=== PATIENT | female | born 1990 | race Two or more races ===

== ENCOUNTER 2016-06-24 15:02 | Emergency (ER) | payer SELFPAY ==
--- NOTE | 2016-06-24 15:19 | ER Document Report ---
ED Medical Screen (RME) - General Stated Complaint: NECK PAIN Time seen by provider: 15:16 Mode of Arrival: Ambulatory Information source: Patient Notes: 25-year-old female presents to ED for neck pain right ear pain and headache with some swelling to the right side of her face and neck. She states she had similar pain about 2 weeks ago it got a little better than 2 days ago it started again and has gotten much worse. She's been taken sinus medicine and Tylenol which are not helping. States she has nausea but no vomiting.. Started on the of this month I have greeted and performed a rapid initial assessment of this patient. A comprehensive ED assessment and evaluation of the patient, analysis of test results and completion of medical decision making process will be conducted by an additional ED providers. TRAVEL OUTSIDE OF THE [place] IN LAST 30 DAYS: No - Related Data Allergies/Adverse Reactions: Penicillins Allergy (Verified 09/07/15 21:20) pineapple [Pineapple] Allergy (Verified 09/07/15 21:20) Past Medical History - Past Medical History Cardiac Medical History: Denies: Hx Coronary Artery Disease - HX OF HIGH CHOLESTEROL, NO LONGER ON MEDICATION, Hx Heart Attack, Hx Hypertension Pulmonary Medical History: Reports: Hx Asthma Denies: Hx Bronchitis, Hx COPD, Hx Pneumonia Neurological Medical History: Reports: Hx Migraine. Denies: Hx Cerebrovascular Accident, Hx Seizures GI Medical History: Reports: Hx Gastroesophageal Reflux Disease Musculoskeltal Medical History: Denies Hx Arthritis Past Surgical History: Reports: Hx Cholecystectomy. Denies: Hx Hysterectomy - UCG NEGATIVE - Immunizations Hx Diphtheria, Pertussis, Tetanus Vaccination: Yes Physical Exam - Vital signs Vitals: Temp Pulse Resp BP Pulse Ox 98.0 F 111 H 18 146/97 H 98 06/24/16 15:13 06/24/16 15:13 06/24/16 15:13 06/24/16 15:13 06/24/16 15:13 Course - Vital Signs Vital signs: Temp Pulse Resp BP Pulse Ox 98.0 F 111 H 18 146/97 H 98 06/24/16 15:13 06/24/16 15:13 06/24/16 15:13 06/24/16 15:13 06/24/16 15:13
[2016-06-24] MEDS ORDERED: IBUPROFEN 800 MG TABLET PO ONE (15:20)
[2016-06-24] MEDS ORDERED: IBUPROFEN 800 MG TABLET ONE (15:24)
[2016-06-24] MEDS ORDERED: KETOROLAC TROMETHAMINE 60 MG/2 ML SDV IM ONE (16:00)
--- NOTE | 2016-06-24 18:25 | ER Document Report ---
HPI - HPI Patient complains to provider of: neck pain and sinus congestion Onset: Other - 5 days Onset/Duration: Sudden, Gradual - worsening of neck pain Quality of pain: Achy, Dull Severity: Moderate Pain Level: 4 Associated Symptoms: Nonproductive cough, Headache, Sinus pain/drainage. denies : Sore throat, Sweating Exacerbated by: Movement Relieved by: Remaining still - CONSTITUTIONAL Constitutional: REPORTS: Chills. DENIES: Fever - EENT EENT: REPORTS: Sore Throat, Ear Pain, Nasal Drainage-Clear, Congestion. DENIES : Nasal Drainage-Purulent, Eye problems - NEURO Neurology: REPORTS: Headache, Weakness. DENIES: Vision blurred, Dizzinesss / Vertigo - CARDIOVASCULAR Cardiovascular: DENIES: Chest pain - RESPIRATORY Respiratory: REPORTS: Coughing. DENIES: Trouble Breathing - GASTROINTESTINAL Gastrointestinal: DENIES: Abdominal Pain, Nausea, Patient vomiting, Diarrhea, Constipation, Black / Bloody Stools - URINARY Urinary: DENIES: Dysuria, Urgency, Frequency - REPRODUCTIVE Reproductive: DENIES: : - MUSCULOSKELETAL Musculoskeletal: REPORTS: Neck Pain. DENIES: Extremity pain, Back Pain, Swelling - DERM Skin Color: Normal Skin Problems: None Past Medical History - General Information source: Patient - Social History Smoking Status: Never Smoker Chew tobacco use (# tins/day): No Frequency of alcohol use: None Drug Abuse: None Family History: DM, Hypertension, Thyroid Disfunction Patient has suicidal ideation: No Patient has homicidal ideation: No - Past Medical History Cardiac Medical History: Denies: Hx Coronary Artery Disease - HX OF HIGH CHOLESTEROL, NO LONGER ON MEDICATION, Hx Heart Attack, Hx Hypertension Pulmonary Medical History: Reports: Hx Asthma Denies: Hx Bronchitis, Hx COPD, Hx Pneumonia Neurological Medical History: Reports: Hx Migraine. Denies: Hx Cerebrovascular Accident, Hx Seizures Renal/ Medical History: Denies: Hx Peritoneal Dialysis GI Medical History: Reports: Hx Gastroesophageal Reflux Disease Musculoskeltal Medical History: Denies Hx Arthritis Past Surgical History: Reports: Hx Cholecystectomy. Denies: Hx Hysterectomy - UCG NEGATIVE - Immunizations Hx Diphtheria, Pertussis, Tetanus Vaccination: Yes Hx Pneumococcal Vaccination: 06/05/00 Vertical Provider Document - CONSTITUTIONAL Agree With Documented VS: Yes Exam Limitations: No Limitations General Appearance: WD/WN, No Apparent Distress - INFECTION CONTROL TRAVEL OUTSIDE OF THE [place] IN LAST 30 DAYS: No - HEENT HEENT: Atraumatic, Normal ENT Exam, Normocephalic - NECK Neck: Normal Inspection, Supple, Other - full ROM - RESPIRATORY Respiratory: Breath Sounds Normal, No Respiratory Distress, Chest Non-Tender O2 Sat by Pulse Oximetry: 98 - CARDIOVASCULAR Cardiovascular: Regular Rate, Regular Rhythm, No Murmur Pulses: Normal: Radial - MUSCULOSKELETAL/EXTREMETIES Musculoskeletal/Extremeties: MAEW, FROM, Non-Tender, No Edema - NEURO Level of Consciousness: Awake, Alert, Appropriate Motor/Sensory: No Motor Deficit, No Sensory Deficit - DERM Integumentary: Warm, Dry, No Rash Course - Re-evaluation Re-evalutation: 06/24/16 22:18 patient is HDS and NAD resting comfortably and respoded well to toradol. Educated on OTC medications to manage sinus congestion. can follow up with PCP - Vital Signs Vital signs: Temp Pulse Resp BP Pulse Ox 98.0 F 111 H 18 146/97 H 98 06/24/16 15:13 06/24/16 15:13 06/24/16 15:13 06/24/16 15:13 06/24/16 15:13 Discharge - Discharge Clinical Impression: Congestion of paranasal sinus Headache Qualifiers: Headache type: unspecified Headache chronicity pattern: acute headache Intractability: intractable Qualified Code(s): R51 - Headache Condition: Good Disposition: HOME, SELF-CARE Instructions: Decongestant Medication ([facility]), Toradol Injection ([facility]), Tension Headache ([facility]) Prescriptions: Ibuprofen [Motrin 800 mg Tablet] 800 mg PO Q8H PRN #30 tab PRN Reason: Forms: Elevated Blood Pressure
[2016-06-24 18:45] VITALS: BP 120/64
== END 2016-06-24 18:45 | disposition home or self-care (01) ==
LOC: ER 15:02
DX: R09.81 Nasal congestion (principal); M54.2 Cervicalgia; R05 Cough
CPT/HCPCS: 99283; 96372; J1885

== ENCOUNTER 2016-12-08 07:35 | Emergency (ER) | payer SELFPAY ==
[2016-12-08] MEDS ORDERED: DIPHENHYDRAMINE HCL 50 MG/ML VIAL IM ONE ×2 (08:34→10:57)
[2016-12-08] MEDS ORDERED: PREDNISONE 20 MG TABLET PO ONE (08:34)
[2016-12-08] MEDS ORDERED: FAMOTIDINE 20 MG TABLET PO ONE (08:34)
[2016-12-08 10:47] VITALS: BP 128/82
--- NOTE | 2016-12-08 10:57 | ER Document Report ---
ED General - General Chief Complaint: Hives Stated Complaint: POSSIBLE INSECT BITES Time Seen by Provider: 12/08/16 08:21 TRAVEL OUTSIDE OF THE [place] IN LAST 30 DAYS: No - HPI Patient complains to provider of: Hives itching Notes: Patient coming in for evaluation of hives and itching. Patient states that she woke up with multiple hives he is sensing patient states she has taken Benadryl at home however minimal relief. Patient denies knowing of any other allergies except for pineapple and penicillin concerned she may be having a reaction to bedbug bites. Patient denies any fevers chills nausea vomiting diarrhea. - Related Data Allergies/Adverse Reactions: Penicillins Allergy (Verified 12/08/16 08:20) pineapple [Pineapple] Allergy (Verified 12/08/16 08:20) Past Medical History - Social History Smoking Status: Never Smoker Chew tobacco use (# tins/day): No Frequency of alcohol use: None Drug Abuse: None Family History: DM, Hypertension, Thyroid Disfunction Patient has suicidal ideation: No Patient has homicidal ideation: No - Past Medical History Cardiac Medical History: Denies: Hx Coronary Artery Disease - HX OF HIGH CHOLESTEROL, NO LONGER ON MEDICATION, Hx Heart Attack, Hx Hypertension Pulmonary Medical History: Reports: Hx Asthma Denies: Hx Bronchitis, Hx COPD, Hx Pneumonia Neurological Medical History: Reports: Hx Migraine. Denies: Hx Cerebrovascular Accident, Hx Seizures Renal/ Medical History: Denies: Hx Peritoneal Dialysis GI Medical History: Reports: Hx Gastroesophageal Reflux Disease Musculoskeltal Medical History: Denies Hx Arthritis Past Surgical History: Reports: Hx Cholecystectomy. Denies: Hx Hysterectomy - UCG NEGATIVE - Immunizations Hx Diphtheria, Pertussis, Tetanus Vaccination: Yes Hx Pneumococcal Vaccination: 06/05/00 Review of Systems - Review of Systems Constitutional: No symptoms reported EENT: No symptoms reported Cardiovascular: No symptoms reported Respiratory: No symptoms reported Gastrointestinal: No symptoms reported Genitourinary: No symptoms reported Female Genitourinary: No symptoms reported Musculoskeletal: No symptoms reported Skin: Other - Hives Hematologic/Lymphatic: No symptoms reported Neurological/Psychological: No symptoms reported Physical Exam - Vital signs Vitals: Temp Pulse Resp BP Pulse Ox 98.7 F 87 16 151/96 H 100 12/08/16 07:39 12/08/16 07:39 12/08/16 07:39 12/08/16 07:39 12/08/16 07:39 Interpretation: Normal - General General appearance: Appears well, Alert - HEENT Head: Normocephalic, Atraumatic Eyes: Normal Pupils: PERRL - Respiratory Respiratory status: No respiratory distress Chest status: Nontender Breath sounds: Normal Chest palpation: Normal - Cardiovascular Rhythm: Regular Heart sounds: Normal auscultation Murmur: No - Abdominal Inspection: Normal Distension: No distension Bowel sounds: Normal Tenderness: Nontender Organomegaly: No organomegaly - Back Back: Normal, Nontender - Extremities General upper extremity: Normal inspection, Nontender, Normal color, Normal ROM , Normal temperature General lower extremity: Normal inspection, Nontender, Normal color, Normal ROM , Normal temperature, Normal weight bearing. No: Dillon's sign - Neurological Neuro grossly intact: Yes Cognition: Normal Orientation: AAOx4 [place] Coma Scale Eye Opening: Spontaneous Elizabeth Coma Scale Verbal: Oriented [place] Coma Scale Motor: Obeys Commands Austin Coma Scale Total: 15 Speech: Normal Motor strength normal: LUE, RUE, LLE, RLE Sensory: Normal - Psychological Associated symptoms: Normal affect, Normal mood - Skin Skin Temperature: Warm Skin Moisture: Dry Skin Color: Other - Diffuse hives on the torso upper and lower extremities. Course - Re-evaluation Re-evalutation: 12/08/16 15:53 Patient coming in for evaluation of diffuse hives with resolution on the lower extremities with Benadryl Pepcid and steroids. Will discharge patient home on Atarax and prednisone - Vital Signs Vital signs: Temp Pulse Resp BP Pulse Ox 98.2 F 79 18 128/82 H 96 12/08/16 10:41 12/08/16 10:41 12/08/16 10:41 12/08/16 10:41 12/08/16 10:41 Discharge - Discharge Clinical Impression: Hives Condition: Good Disposition: HOME, SELF-CARE Instructions: Acute Urticaria ([facility]), Acute Allergic Reaction ([facility]) Additional Instructions: The examination today is consistent with hives from allergic reaction. Unclear what the initiating event is at this time. Would recommend follow-up with your primary care physician. Continue take medication as prescribed he may also use [id number] Benadryl cream or calamine lotion for itching please avoid hot showers. Return to ER symptoms worsen Prescriptions: Hydroxyzine HCl [Atarax 50 mg Tablet] 50 mg PO Q6 #30 tablet Prednisone [Deltasone 20 mg Tablet] 3 tab PO DAILY 5 Days Forms: Return to Work Referrals: LOCALMD,NO [NO LOCAL MD] - Follow up in 3-5 days
== END 2016-12-08 11:28 | disposition home or self-care (01) ==
LOC: ER 07:35
DX: L50.9 Urticaria, unspecified (principal)
CPT/HCPCS: 99283; 96372; J1200; J7512

== ENCOUNTER 2017-01-16 16:55 | Emergency (ER) | payer SELFPAY ==
--- NOTE | 2017-01-16 18:11 | ER Document Report ---
ED Medical Screen (RME) - General Chief Complaint: Abdominal pain, breast pain Stated Complaint: ABDOMINAL PAIN Time Seen by Provider: 01/16/17 18:01 Notes: 26-year-old female patient complains of a three-week history of bilateral breast pain and suprapubic abdominal pain which is been getting worse. She has done negative tests at home. She has not seen a primary care provider to evaluate this problem. I have greeted and performed a rapid initial assessment of this patient. A comprehensive ED assessment and evaluation of the patient, analysis of test results and completion of the medical decision making process will be conducted by additional ED providers. TRAVEL OUTSIDE OF THE [place] IN LAST 30 DAYS: No - Related Data Allergies/Adverse Reactions: Penicillins Allergy (Verified 12/08/16 08:20) pineapple [Pineapple] Allergy (Verified 12/08/16 08:20) Home Medications: Current Home Medications No Home Medications 01/16/17 [History] Past Medical History - Past Medical History Cardiac Medical History: Denies: Hx Coronary Artery Disease - HX OF HIGH CHOLESTEROL, NO LONGER ON MEDICATION, Hx Heart Attack, Hx Hypertension Pulmonary Medical History: Reports: Hx Asthma Denies: Hx Bronchitis, Hx COPD, Hx Pneumonia Neurological Medical History: Reports: Hx Migraine. Denies: Hx Cerebrovascular Accident, Hx Seizures Renal/ Medical History: Denies: Hx Peritoneal Dialysis GI Medical History: Reports: Hx Gastroesophageal Reflux Disease Musculoskeltal Medical History: Denies Hx Arthritis Past Surgical History: Reports: Hx Cholecystectomy. Denies: Hx Hysterectomy - UCG NEGATIVE - Immunizations Hx Diphtheria, Pertussis, Tetanus Vaccination: Yes Physical Exam - Vital signs Vitals: Temp Pulse Resp BP Pulse Ox 99.1 F 82 18 139/94 H 96 01/16/17 17:11 01/16/17 17:11 01/16/17 17:11 01/16/17 17:11 01/16/17 17:11 Course - Vital Signs Vital signs: Temp Pulse Resp BP Pulse Ox 99.1 F 82 18 139/94 H 96 01/16/17 17:11 01/16/17 17:11 01/16/17 17:11 01/16/17 17:11 01/16/17 17:11
[2017-01-16 19:14] LABS: APPEARANCE,URINE SLIGHTLY-CLOUDY; BILIRUBIN,URINE NEGATIVE (NEGATIVE); GLUCOSE, URINE NEGATIVE (NEGATIVE); KETONES,URINE NEGATIVE (NEGATIVE); LEUKOCYTE ESTERASE,URINE SMALL (NEGATIVE); NITRITE,URINE NEGATIVE (NEGATIVE); PROTEIN,URINE NEGATIVE (NEGATIVE); URINE SPECIFIC GRAVITY 1.024; UROBILINOGEN,URINE NEGATIVE mg/dL (<2.0)
[2017-01-16 19:24] LABS: ABSOLUTE LYMPHOCYTES (AUTO) 2.6 10^3/uL (0.5-4.7); ABSOLUTE MONOCYTES (AUTO) 0.3 10^3/uL (0.1-1.4); ABSOLUTE NEUT (AUTO) 4.2 10^3/uL (1.7-8.2); BASOPHILS % (AUTO) 0.3 % (0-2); EOSINOPHILS % (AUTO) 0.7 % (0-6); HEMATOCRIT 39.3 % (36.0-47.0); HGB HCT DIFFERENCE -0.3; LYMPHOCYTES % (AUTO) 35.5 % (13-45); MEAN CORPUSCULAR HEMOGLOBIN 26.9 pg (27.0-33.4); MEAN CORPUSCULAR HGB CONC 33.1 g/dL (32.0-36.0); MEAN CORPUSCULAR VOLUME 81 fl (80-97); MONOCYTES % (AUTO) 4.5 % (3-13); RED BLOOD COUNT 4.84 10^6/uL (3.72-5.28); RED CELL DISTRIBUTION WIDTH 14.3 % (11.5-14.0); WHITE BLOOD COUNT 7.2 10^3/uL (4.0-10.5)
[2017-01-16 19:37] LABS: ALANINE AMINOTRANSFERASE 49 U/L (9-52); ALBUMIN 4.5 g/dL (3.5-5.0); ALKALINE PHOSPHATASE 73 U/L (38-126); ANION GAP 12 (5-19); ASPARTATE AMINO TRANSFERASE 35 U/L (14-36); BILIRUBIN,DIRECT 0.4 mg/dL (0.0-0.4); BILIRUBIN,TOTAL 0.6 mg/dL (0.2-1.3); BLOOD UREA NITROGEN 9 mg/dL (7-20); CALCIUM 9.8 mg/dL (8.4-10.2); CARBON DIOXIDE 25 mmol/L (22-30); CHLORIDE 104 mmol/L (98-107); CREATININE RESULT 0.61 mg/dL (0.52-1.25); GLUCOSE 93 mg/dL (75-110); POTASSIUM 4.1 mmol/L (3.6-5.0); SODIUM 140.8 mmol/L (137-145)
--- NOTE | 2017-01-16 20:11 | ER Document Report ---
HPI - HPI Pain Level: 4 Notes: Patient is a non 26-year-old female who presents the ED complaining of lower pelvic sharp pain on and off 3 weeks. The pain is bilateral. Patient is not aware of any precipitating event. Nothing makes the pain worse or better that she can think of. Patient also complains of bilateral breast sensitivity with soreness, but no pain that she can find with movement or palpation of her breasts. No discharge, dimpling, redness, or swelling to her breasts per patient. That discomfort has been ongoing on and off 2 days. Patient has not been evaluated by the women's clinic for these concerns at this time. test at home was negative. Patient states that she is still eating and drinking without any difficulties. She is still urinating normally and having normal bowel movements. She has not had any over- the-counter meds for her symptoms. Patient states she is allergic to penicillins which causes swelling, but no other significant past medical history. Denies any headache, fever, URI, sore throat, chest pain, palpitations , syncope, cough, shortness of breath, wheeze, dyspnea, nausea/vomiting/diarrhea , urinary retention, dysuria, hematuria, loss of control of bowel or bladder, vaginal discharge/bleeding/odor, numbness/tingling, saddle anesthesia, muscle paralysis/weakness, or rash. - ROS Notes: REVIEW OF SYSTEMS: CONSTITUTIONAL : Denies fever, chills, or sweats. Denies recent illness. EENT: Denies eye, ear, throat, or mouth pain or symptoms. Denies nasal or sinus congestion or discharge. Denies throat, tongue, or mouth swelling or difficulty swallowing. CARDIOVASCULAR: Denies chest pain. Denies palpitations or racing or irregular heart beat. Denies ankle edema. RESPIRATORY: Denies cough, cold, or chest congestion. Denies shortness of breath, difficulty breathing, or wheezing. GASTROINTESTINAL: see hpi GENITOURINARY: Denies difficulty urinating, painful urination, burning, frequency, blood in urine, or discharge. FEMALE GENITOURINARY: Denies vaginal bleeding, heavy or abnormal periods, irregular periods. Denies vaginal discharge or odor. MUSCULOSKELETAL: Denies back or neck pain or stiffness. Denies joint pain or swelling. SKIN: Denies rash, lesions or sores. NEUROLOGICAL: Denies confusion or altered mental status. Denies passing out or loss of consciousness. Denies dizziness or lightheadedness. Denies headache. Denies weakness or paralysis or loss of use of either side. Denies problems with gait or speech. Denies sensory loss, numbness, or tingling. Denies seizures. PSYCHIATRIC: Denies anxiety or stress. Denies depression, suicidal ideation, or homicidal ideation. ALL OTHER SYSTEMS REVIEWED AND NEGATIVE. Dictation was performed using [employer] voice recognition software - CARDIOVASCULAR Cardiovascular: DENIES: Chest pain - REPRODUCTIVE LMP: irreg Reproductive: DENIES: : - DERM Skin Color: Normal, [place] Past Medical History - Social History Smoking Status: Never Smoker Chew tobacco use (# tins/day): No Frequency of alcohol use: None Drug Abuse: None Family History: DM, Hypertension, Thyroid Disfunction - Past Medical History Cardiac Medical History: Denies: Hx Coronary Artery Disease - HX OF HIGH CHOLESTEROL, NO LONGER ON MEDICATION, Hx Heart Attack, Hx Hypertension Pulmonary Medical History: Reports: Hx Asthma Denies: Hx Bronchitis, Hx COPD, Hx Pneumonia Neurological Medical History: Reports: Hx Migraine. Denies: Hx Cerebrovascular Accident, Hx Seizures Renal/ Medical History: Denies: Hx Peritoneal Dialysis GI Medical History: Reports: Hx Gastroesophageal Reflux Disease Musculoskeltal Medical History: Denies Hx Arthritis Past Surgical History: Reports: Hx Cholecystectomy. Denies: Hx Hysterectomy - Immunizations Hx Diphtheria, Pertussis, Tetanus Vaccination: Yes Hx Pneumococcal Vaccination: 06/05/00 Vertical Provider Document - CONSTITUTIONAL Agree With Documented VS: Yes Notes: PHYSICAL EXAMINATION: GENERAL: Well-appearing, well-nourished and in no acute distress. Pt sitting comfortably on the exam table. NECK: Normal range of motion, supple without lymphadenopathy Breast: symmetric b/l. no dimpling, lesions, erythema, or swelling noted. No palpable masses appreciated. No axillary/cervical/clavilar adenopathy. + mild tenderness to the left inferior breast. LUNGS: Breath sounds clear to auscultation bilaterally and equal. No wheezes rales or rhonchi. HEART: Regular rate and rhythm without murmurs ABDOMEN: Soft, nondistended abdomen. No guarding, no rebound. No masses appreciated. Normal bowel sounds present. CVA tenderness negative bilaterally. + mild tenderness to the lower pelvic areas b/l. Female : No inguinal adenopathy. External genitalia without erythema, lesions , or masses. Vaginal mucosa pink with white discharge. Cervix parous, pink, and without discharge. Uterus is smooth. No adnexal tenderness. Musculoskeletal: LE's b/l: FROM to passive/active. Strength 5+/5. Extremities: No cyanosis/clubbing/edema b/l. Peripheral pulses 2+. Capillary refill less than 3 seconds. NEUROLOGICAL:Normal speech, normal gait. Normal sensory, motor exams PSYCH: Normal mood, normal affect. SKIN: Warm, Dry, normal turgor, no rashes or lesions noted. - INFECTION CONTROL TRAVEL OUTSIDE OF THE [place] IN LAST 30 DAYS: No - RESPIRATORY O2 Sat by Pulse Oximetry: 96 Course - Re-evaluation Re-evalutation: 01/16/17 22:46 Patient is an afebrile, well-hydrated, 26-year-old female who presents the ED with bacterial vaginosis, pelvic pain, and breast pain (reviewed breast pain with Dr. Chun who recommends f/u with OB-ETHICS INSTRUCTOR/PCM for further eval). I suspect that her breast pain is fibrocystic changes based on H&P today. Vitals are stable. PE otherwise unremarkable. Low suspicion for any acute appendicitis, bowel obstruction, acute cholecystitis, perforated diverticulitis, incarcerated hernia, pancreatitis, pelvic inflammatory disease, perforated ulcer, ectopic , tubo-ovarian abscess, peritonitis, or sepsis. Patient is aware that condition can change from initial presentation and she needs to monitor symptoms closely and seek medical attention if any acute changes. I will send her home with a prescription for Flagyl to take as directed. conservative measures for symptoms as reviewed in discharge. Recheck with the women's clinic in 2-3 days. Return to the ED with any worsening/concerning symptoms otherwise as reviewed in discharge. Patient is in agreement. - Vital Signs Vital signs: Temp Pulse Resp BP Pulse Ox 99.1 F 82 18 139/94 H 96 01/16/17 17:11 01/16/17 17:11 01/16/17 17:11 01/16/17 17:11 01/16/17 17:11 - Laboratory Result Diagrams: 01/16/17 19:10 01/16/17 19:10 Laboratory results interpreted by me: 01/16/17 01/16/17 18:42 19:10 MCH 26.9 L RDW 14.3 H Ur Leukocyte Esterase SMALL H Urine Ascorbic Acid 20 H Procedures - Pelvic Exam Pelvic exam Time completed: 21:00 Cultures obtained: Yes Wet prep obtained: No Herpes culture obtained: No Bimanual exam performed: Yes Witnessed by: female pct Discharge - Discharge Clinical Impression: Bacterial vaginal infection, Pelvic pain, Breast pain Condition: Stable Disposition: HOME, SELF-CARE Instructions: Pelvic Pain ([facility]), Vaginosis, Bacterial ([facility]), Breast Self- Examination ([facility]), Breast Fibrocystic Disease ([facility]) Additional Instructions: Maintain adequate fluid intake Take medications as directed Tylenol/ibuprofen as needed Monitor for any acute changes Perform regular breast self exams Recheck with the women's clinic in 2-3 days Return to the ED with any worsening symptoms and/or development of fever, headache, chest pain, palpitations, syncope, shortness of breath, trouble breathing, breast dimpling, nipple discharge, redness/abscess, abdominal pain, n /v/d, blood in stool/urine, loss of control of bowel/bladder, urinary retention , vaginal discharge/bleeding, or other worsening symptoms that are concerning to you. Prescriptions: Metronidazole [Flagyl 500 mg Tablet] 500 mg PO BID #14 tablet Forms: Elevated Blood Pressure [facility] - 01/18/17
--- NOTE | 2017-01-16 22:16 | RADIOLOGY REPORT (SQ) ---
EXAM DESCRIPTION: U/S NON OB PEL TV W/DOPPLER COMPLETED DATE/TIME: 01/16/2017 10:07 pm REASON FOR STUDY: pelvic pain COMPARISON: None. TECHNIQUE: Dynamic and static grayscale images acquired of the pelvis via transvaginal approach and recorded on PACS. Additional selected color Doppler and spectral images recorded. LIMITATIONS: None. FINDINGS: UTERUS: Contour normal. No mass. ENDOMETRIAL STRIPE: No focal or generalized thickening. No masses. CERVIX: No nabothian cysts. RIGHT OVARY: No abnormal masses. RIGHT OVARY DOPPLER: Normal arterial vascular flow without evidence for torsion. LEFT OVARY: No abnormal masses. LEFT OVARY DOPPLER: Normal arterial vascular flow without evidence for torsion. FREE FLUID: None noted. OTHER: No other significant finding. MEASUREMENTS: UTERUS: 8.2 x 5.3 x 4.1 cm ENDOMETRIAL STRIPE: 10 mm RIGHT OVARY: 3.8 x 2.0 x 2.6 cm LEFT OVARY: 2.9 x 2.4 x 1.7 sign IMPRESSION: No significant pelvic abnormalities were identified. Findings as noted above TECHNICAL DOCUMENTATION: JOB ID: [id number] All Rights Reserved
[2017-01-16 22:28] LABS: CHLAM PCR NOT DETECTED (NOT DETECT)
[2017-01-16 22:55] VITALS: BP 140/80
== END 2017-01-16 22:59 | disposition home or self-care (01) ==
LOC: ER 16:55
DX: N76.0 Acute vaginitis (principal); N64.4 Mastodynia; R10.2 Pelvic and perineal pain
CPT/HCPCS: 36415; 76830; 80053; 81001; 84703; 85025; 87210; 87491; 87591; 93976; 99284

== ENCOUNTER 2017-09-21 03:11 | Emergency (ER) | payer SELFPAY ==
[2017-09-21] MEDS ORDERED: ONDANSETRON HCL INJ/PF 4 MG/2 ML SDV ONE (03:41)
[2017-09-21] MEDS ORDERED: NORMAL SALINE 1000 ML 1,000 ML IV PRN (03:53)
[2017-09-21] MEDS ORDERED: ONDANSETRON HCL INJ/PF 4 MG/2 ML SDV IV ONE (03:53)
[2017-09-21] MEDS ORDERED: METOCLOPRAMIDE HCL INJ/PF 10 MG/2 ML SDV IV ONE (03:58)
[2017-09-21] MEDS ORDERED: HYDROMORPHONE HCL INJ/PF 2 MG/ML AMPULE IV ONE ×2 (03:59→04:13)
[2017-09-21] MEDS ORDERED: KETOROLAC TROMETHAMINE INJ/PF 30 MG/1 ML SDV IV ONE (03:59)
[2017-09-21] MEDS ORDERED: HYDROMORPHONE HCL INJ/PF 2 MG/ML AMPULE ONE (04:01)
[2017-09-21] MEDS ORDERED: KETOROLAC TROMETHAMINE INJ/PF 30 MG/1 ML SDV ONE (04:02)
[2017-09-21] MEDS ORDERED: METOCLOPRAMIDE HCL INJ/PF 10 MG/2 ML SDV ONE (04:02)
--- NOTE | 2017-09-21 04:03 | ER Document Report ---
ED General - General Chief Complaint: Abdominal Pain Stated Complaint: ABDOMINAL PAIN,VOMITING Time Seen by Provider: 09/21/17 03:58 Notes: Patient is a 27 year old female with a past medical history of morbid obesity, no chronic medical problems, prior surgical history of a cholecystectomy who presents with acute onset of severe left-sided flank tenderness radiating to the left lower abdomen that started approximately 1 hour prior to arrival. Patient notes associated nausea and vomiting. She reports the pain is a severe , constant, stabbing pain to the affected areas. Nothing improves or worsens that pain. She has no history of similar symptoms in the past. She has no prior history of kidney stones. She has not had a fever, diarrhea, headache or neck pain. She has not seen her primary doctor regarding today's concerns. TRAVEL OUTSIDE OF THE [place] IN LAST 30 DAYS: No - Related Data Allergies/Adverse Reactions: Penicillins Allergy (Verified 01/16/17 19:30) pineapple [Pineapple] Allergy (Verified 01/16/17 19:30) Past Medical History - General Information source: Patient - Social History Smoking Status: Never Smoker Frequency of alcohol use: None Drug Abuse: None Lives with: Spouse/Significant other Family History: DM, Hypertension, Thyroid Disfunction - Past Medical History Cardiac Medical History: Denies: Hx Coronary Artery Disease - HX OF HIGH CHOLESTEROL, NO LONGER ON MEDICATION, Hx Heart Attack, Hx Hypertension Pulmonary Medical History: Reports: Hx Asthma Denies: Hx Bronchitis, Hx COPD, Hx Pneumonia Neurological Medical History: Reports: Hx Migraine. Denies: Hx Cerebrovascular Accident, Hx Seizures Renal/ Medical History: Denies: Hx Peritoneal Dialysis GI Medical History: Reports: Hx Gastroesophageal Reflux Disease Musculoskeltal Medical History: Denies Hx Arthritis Past Surgical History: Reports: Hx Cholecystectomy. Denies: Hx Hysterectomy - Immunizations Hx Diphtheria, Pertussis, Tetanus Vaccination: Yes Hx Pneumococcal Vaccination: 06/05/00 Review of Systems - Review of Systems Notes: Constitutional: Negative for fever. HENT: Negative for sore throat. Eyes: Negative for visual changes. Cardiovascular: Negative for chest pain. Respiratory: Negative for shortness of breath. Gastrointestinal: Positive for flank tenderness and vomiting Genitourinary: Negative for dysuria. Musculoskeletal: Negative for back pain. Skin: Negative for rash. Neurological: Negative for headaches, weakness or numbness. 10 point ROS negative except as marked above and in HPI. Physical Exam - Vital signs Vitals: Temp Pulse Resp BP Pulse Ox 98.2 F 77 16 155/124 H 99 09/21/17 03:16 09/21/17 03:16 09/21/17 03:16 09/21/17 03:16 09/21/17 03:16 Interpretation: Hypertensive Notes: PHYSICAL EXAMINATION: GENERAL: Appears to be extremely uncomfortable, moving around the room and clearly unable to find a position of comfort HEAD: Atraumatic, normocephalic. EYES: Pupils equal round and reactive to light, extraocular movements intact, sclera anicteric, conjunctiva are normal. ENT: nares patent, oropharynx clear without exudates. Dry mucous membranes. NECK: Normal range of motion, supple without lymphadenopathy LUNGS: Breath sounds clear to auscultation bilaterally and equal. No wheezes rales or rhonchi. HEART: Regular rate and rhythm without murmurs ABDOMEN: Soft, left CVA tenderness as well as left lower quadrant abdominal tenderness, no additional localized areas of tenderness, normoactive bowel sounds. No guarding, no rebound. No masses appreciated. EXTREMITIES: Normal range of motion, no pitting or edema. No cyanosis. NEUROLOGICAL: No focal neurological deficits. Moves all extremities spontaneously and on command. PSYCH: Normal mood, normal affect. SKIN: Warm, Dry, normal turgor, no rashes or lesions noted. Course - Re-evaluation Re-evalutation: 09/21/17 04:03 Presents with findings consistent with acute nephrolithiasis. Urinalysis does show hematuria. Laboratory otherwise unremarkable. Pain was able to be controlled here in the emergency department. Patient is tolerating oral intake. Clinical history is not consistent with an acute abdominal aneurysm or dissection, [place], or pulmonary embolus. There is some contamination to the urine specimen although the 27 white blood cells are noted. The urine has therefore been cultured and the patient will be prophylactically placed on cephalexin to guard against any possibility of an infected stone. Vitals have remained within normal limits. Patient will be discharged with recommendations to follow -up with urology, pain medications, and return precautions. They are in agreement with this plan and verbalized indications return to emergency department. - Vital Signs Vital signs: Temp Pulse Resp BP Pulse Ox 98.4 F 75 18 133/61 H 97 09/21/17 05:39 09/21/17 05:39 04/19/18 05:39 09/21/17 05:39 09/21/17 05:39 - Laboratory Result Diagrams: 09/21/17 03:50 09/21/17 03:50 Laboratory results interpreted by me: 09/21/17 09/21/17 09/21/17 03:50 03:50 05:35 MCH 26.5 L RDW 14.3 H Sodium 146.5 H Glucose 125 H Urine Protein 100 H Urine Blood LARGE H - Diagnostic Test Radiology reviewed: Reports reviewed Discharge - Discharge Clinical Impression: Kidney stone on left side Hydronephrosis Qualifiers: Hydronephrosis type: unspecified Qualified Code(s): N13.30 - Unspecified hydronephrosis Condition: Good Disposition: HOME, SELF-CARE Additional Instructions: Your symptoms should improve over the course of the next one week. If you continue to have pain for greater than one week or your pain is not controlled with the pain medications that you have been sent home with you need to return to the emergency department. Please also return if you develop fever, persistent vomiting, or any other symptoms that are concerning to you. For your pain: Take ibuprofen 600 mg and acetaminophen 1000 mg every 6 hours together as needed for pain. If this does not control your pain you may take 15 mg of oral morphine every 4 hours as needed. Please be very careful about using the oral morphine and only use this for severe pain. You are also been sent home with a medication called Flomax to help pass the stone. You've been given Zofran to assist with nausea. Please follow-up with urology in the next 2 -3 days. Prescriptions: Morphine Sulfate [Morphine Ir 15 mg Tablet] 15 mg PO Q4HP PRN #12 tablet PRN Reason: Cephalexin Monohydrate [Keflex 500 mg Capsule] 500 mg PO Q6H 5 Days capsule Tamsulosin HCl [Flomax 0.4 mg Cap.sr] 0.4 mg PO DAILY #7 cap.sr.24h Referrals: CHRISTIANO HOOKS II, MD [ARASH MALDONADO] - Follow up in 3-5 days
[2017-09-21 04:08] LABS: ABSOLUTE BASOPHILS # (AUTO) 0.1 10^3/uL (0.0-0.2); ABSOLUTE EOSINOPHILS # (AUTO) 0.1 10^3/uL (0.0-0.6); ABSOLUTE LYMPHOCYTES (AUTO) 3.6 10^3/uL (0.5-4.7); ABSOLUTE MONOCYTES (AUTO) 0.6 10^3/uL (0.1-1.4); ABSOLUTE NEUT (AUTO) 5.6 10^3/uL (1.7-8.2); BASOPHILS % (AUTO) 0.5 % (0-2); EOSINOPHILS % (AUTO) 0.7 % (0-6); HEMATOCRIT 39.5 % (36.0-47.0); HEMOGLOBIN 13.2 g/dL (12.0-15.5); LYMPHOCYTES % (AUTO) 36.4 % (13-45); MEAN CORPUSCULAR HEMOGLOBIN 26.5 pg (27.0-33.4); MEAN CORPUSCULAR HGB CONC 33.3 g/dL (32.0-36.0); MEAN CORPUSCULAR VOLUME 80 fl (80-97); MONOCYTES % (AUTO) 5.8 % (3-13); PLATELET COUNT 216 10^3/uL (150-450); RED BLOOD COUNT 4.97 10^6/uL (3.72-5.28); RED CELL DISTRIBUTION WIDTH 14.3 % (11.5-14.0); SEGMENTED NEUTROPHILS % (AUTO) 56.6 % (42-78); TOTAL CELLS COUNTED % (AUTO) 100 %
[2017-09-21 04:19] LABS: ALANINE AMINOTRANSFERASE 50 U/L (9-52); ALBUMIN 4.3 g/dL (3.5-5.0); ALKALINE PHOSPHATASE 72 U/L (38-126); ANION GAP 16 (5-19); ASPARTATE AMINO TRANSFERASE 31 U/L (14-36); BILIRUBIN,DIRECT 0.3 mg/dL (0.0-0.4); BILIRUBIN,TOTAL 0.3 mg/dL (0.2-1.3); BLOOD UREA NITROGEN 13 mg/dL (7-20); CALCIUM 9.6 mg/dL (8.4-10.2); CARBON DIOXIDE 27 mmol/L (22-30); CHLORIDE 104 mmol/L (98-107); GLUCOSE 125 mg/dL (75-110); LIPASE 143.5 U/L (23-300); POTASSIUM 3.7 mmol/L (3.6-5.0); SODIUM 146.5 mmol/L (137-145); TOTAL PROTEIN 7.5 g/dL (6.3-8.2)
--- NOTE | 2017-09-21 05:21 | RADIOLOGY REPORT (SQ) ---
EXAM DESCRIPTION: CT ABDOMEN AND PELVIS WITHOUT CONTRAST CLINICAL HISTORY: Left upper and lower quadrant pain. COMPARISON: None Available. TECHNIQUE: CT of the abdomen and pelvis without IV contrast. Evaluation of the solid organs and vasculature is suboptimal due to lack of IV contrast. DLP: 1626.58 mGy-cm FINDINGS: Lung Bases: The visualized lung bases are clear. Bones: No destructive bone lesions identified. Abdomen: Liver: The liver has normal size and decreased density. Gallbladder: Prior cholecystectomy. Spleen, Pancreas, and Adrenal Glands: The spleen, pancreas, and adrenal glands are unremarkable. Kidneys: There is a 2 mm obstructing calculus in the proximal left ureter producing mild left hydronephrosis. No right-sided hydronephrosis or obstructing calculus. Vasculature: The aorta and IVC have normal caliber and position. Stomach: The stomach and duodenum have normal course. Other: No free intraperitoneal air. No free fluid or lymphadenopathy. Pelvis: Bladder: Urinary bladder is unremarkable. Bowel: No dilated loops of large or small bowel. Appendix: Normal appendix. Pelvis: Uterus is not enlarged. Postoperative change in the left adnexa. IMPRESSION: 1. There is a 0.2 cm obstructing calculus the proximal left ureter producing mild left hydronephrosis. This exam was performed according to our departmental dose-optimization program, which includes automated exposure control, adjustment of the mA and/or kV according to patient size and/or use of iterative reconstruction technique.
[2017-09-21] MEDS ORDERED: TAMSULOSIN HCL 0.4 MG CAP.SR.24H PO ONE (05:30)
[2017-09-21] MEDS ORDERED: HYDROCODONE/ACETAMINOPHEN 5-325 MG (6 TAB/ER DISP) PO PRN (05:30)
[2017-09-21] MEDS ORDERED: ONDANSETRON ODT 4 MG TAB (6 TAB/ER DISP) PO PRN (05:31)
[2017-09-21 05:40] VITALS: BP 133/61
[2017-09-21 06:12] LABS: APPEARANCE,URINE CLOUDY; BILIRUBIN,URINE NEGATIVE (NEGATIVE); COLOR,URINE AMBER; GLUCOSE, URINE NEGATIVE (NEGATIVE); KETONES,URINE NEGATIVE (NEGATIVE); LEUKOCYTE ESTERASE,URINE NEGATIVE (NEGATIVE); NITRITE,URINE NEGATIVE (NEGATIVE); PROTEIN,URINE 100 mg/dL (NEGATIVE); UROBILINOGEN,URINE NEGATIVE mg/dL (<2.0)
[2017-09-21] MEDS ORDERED: CEPHALEXIN 500 MG CAPSULE PO ONE (06:21)
== END 2017-09-21 06:30 | disposition home or self-care (01) ==
LOC: ER 03:11
DX: N20.0 Calculus of kidney (principal); N13.30 Unspecified hydronephrosis; R10.9 Unspecified abdominal pain; E66.01 Morbid (severe) obesity due to excess calories; Z90.49 Acquired absence of other specified parts of digestive tract; Z88.0 Allergy status to penicillin
CPT/HCPCS: 99284; 96361; 96374; 96375; 36415; 87086; 83690; 84703; 85025; 80053; 81001; 76380; J2765; J1170; J2405; J7030; J1885

== ENCOUNTER 2017-10-02 20:38 | Emergency (ER) | payer SELFPAY ==
[2017-10-02] MEDS ORDERED: DIPHENHYDRAMINE HCL 50 MG/ML VIAL IV ONE (22:40)
[2017-10-02] MEDS ORDERED: PROCHLORPERAZINE EDISYLATE INJ 10 MG/2 ML VIAL IV ONE (22:40)
[2017-10-02] MEDS ORDERED: KETOROLAC TROMETHAMINE INJ/PF 30 MG/1 ML SDV IV ONE (22:42)
[2017-10-02] MEDS ORDERED: NORMAL SALINE 1000 ML 1,000 ML IV ONE (22:44)
--- NOTE | 2017-10-03 00:23 | ER Document Report ---
ED Headache - General Chief Complaint: Headache Stated Complaint: HEADACHE Time Seen by Provider: 10/02/17 22:29 Mode of Arrival: Ambulatory Information source: Patient Notes: Patient is a 27-year-old female who presents with complaints of headache and increased blood pressure. Patient reports that she has been having this headache on and off for the last week. Patient reports that she has been taking Tylenol and Motrin for the headache which has resolved the headache during the week but today the headache gradually became worse. She describes the headache as right sided and states that it feels like a throbbing pain. There is associated nausea. Patient reports past medical history of renal stones and irregular periods and surgical history of cholecystectomy. Patient also reports a penicillin allergy. Patient does report some tightness in her upper shoulders and neck but denies any pain in her neck or fever. TRAVEL OUTSIDE OF THE [place] IN LAST 30 DAYS: No - Related Data Allergies/Adverse Reactions: Penicillins Allergy (Verified 01/16/17 19:30) pineapple [Pineapple] Allergy (Verified 01/16/17 19:30) Past Medical History - General Information source: Patient - Social History Smoking Status: Never Smoker Frequency of alcohol use: Occasional Drug Abuse: None Family History: DM, Hypertension, Thyroid Disfunction Patient has suicidal ideation: No Patient has homicidal ideation: No - Past Medical History Cardiac Medical History: Denies: Hx Coronary Artery Disease - HX OF HIGH CHOLESTEROL, NO LONGER ON MEDICATION, Hx Heart Attack, Hx Hypertension Pulmonary Medical History: Reports: Hx Asthma Denies: Hx Bronchitis, Hx COPD, Hx Pneumonia Neurological Medical History: Reports: Hx Migraine. Denies: Hx Cerebrovascular Accident, Hx Seizures Renal/ Medical History: Denies: Hx Peritoneal Dialysis GI Medical History: Reports: Hx Gastroesophageal Reflux Disease Musculoskeltal Medical History: Denies Hx Arthritis Past Surgical History: Reports: Hx Cholecystectomy. Denies: Hx Hysterectomy - Immunizations Hx Diphtheria, Pertussis, Tetanus Vaccination: Yes Hx Pneumococcal Vaccination: 06/05/00 Review of Systems - Review of Systems Constitutional: No symptoms reported EENT: No symptoms reported Cardiovascular: No symptoms reported Respiratory: No symptoms reported Gastrointestinal: No symptoms reported Genitourinary: No symptoms reported Female Genitourinary: No symptoms reported Musculoskeletal: No symptoms reported Skin: No symptoms reported Hematologic/Lymphatic: No symptoms reported Neurological/Psychological: See HPI Physical Exam - Vital signs Vitals: Temp Pulse Resp BP Pulse Ox 98.7 F 106 H 50 H 146/104 H 97 10/02/17 20:56 10/02/17 20:56 10/02/17 20:56 10/02/17 20:56 10/02/17 20:56 - Notes Notes: PHYSICAL EXAMINATION: GENERAL: Well-appearing, well-nourished and in moderate distress. HEAD: Atraumatic, normocephalic. EYES: Pupils equal round and reactive to light, extraocular movements intact, conjunctiva are normal. ENT: Nares patent, oropharynx clear without exudates. Moist mucous membranes. NECK: Normal range of motion, supple without lymphadenopathy LUNGS: Breath sounds clear to auscultation bilaterally and equal. No wheezes rales or rhonchi. HEART: Regular rate and rhythm without murmurs ABDOMEN: Soft, nontender, nondistended abdomen. No guarding, no rebound. No masses appreciated. Female : deferred Musculoskeletal: Normal range of motion, no pitting or edema. No cyanosis. No nuchal rigidity. NEUROLOGICAL: Cranial nerves grossly intact. Normal speech, normal gait. Normal sensory, motor exams. PSYCH: Normal mood, normal affect. SKIN: Warm, Dry, normal turgor, no rashes or lesions noted. Course - Re-evaluation Re-evalutation: Patient is a 27-year-old female with complaints of intermittent headache 1 week , worsening progressively today. Patient has associated nausea and tightness in her shoulders and neck but denies any neck pain or fever. Low suspicion for infectious cause. Will treat patient with headache cocktail and reevaluate. Patient reports complete resolution of her symptoms after medications given. Patient wishes to be discharged, will give prescription for Fioricet as well as Zofran for nausea. Patient given primary care referrals for [facility] as well as [facility] patient states that she is in between insurances right now and will not have active coverage until November 03. Patient encouraged to return to the emergency department if she experiences worsening headache is unrelieved by her medications, Fioricet, Tylenol or ibuprofen. Patient understands to return if she develops stiff neck, fever or any other symptoms that are concerning to her. - Vital Signs Vital signs: Temp Pulse Resp BP Pulse Ox 97.7 F 97 16 133/86 H 98 10/03/17 00:39 10/03/17 00:39 10/03/17 00:39 10/03/17 00:39 10/03/17 00:39 Discharge - Discharge Clinical Impression: Nausea Headache, tension-type Qualifiers: Headache chronicity pattern: episodic headache Intractability: not intractable Qualified Code(s): G44.219 - Episodic tension-type headache, not intractable Condition: Stable Disposition: HOME, SELF-CARE Additional Instructions: Headache The physician does not feel that the headache you are experiencing has a serious underlying cause. Most headaches are due to emotional stress, with resultant muscle tension (tension headache). Occasionally, headaches are secondary to changes in the blood vessels of the scalp (vascular headache and migraine headache). Sometimes, a headache is the first symptom of another developing illness, such as a viral infection. You have no evidence of stroke, bleeding, meningitis, or other serious cause of your headache. The treatment of headaches varies with the severity and cause of the pain. Not all headaches need pain shots. In fact, there is evidence that using narcotics for headaches may make them worse in the long run. The physician will determine the therapy that's in your best interest. If you develop a fever, if the headache is different from any you've previously experienced, or if the headache progressively worsens, then call your physician at once or go to the emergency room. Prescriptions: Butalb/Acetaminophen/Caffeine [Fioricet (50-325-40 mg) Tablet] 1 tab PO Q4HP PRN #30 tab PRN Reason: Ondansetron [Zofran Odt 4 mg Tablet] 1 - 2 tab PO Q4H PRN #15 tab.rapdis PRN Reason: For Nausea/Vomiting Forms: Elevated Blood Pressure Referrals: [facility] [Provider Group] - Follow up as needed [facility] [Provider Group] - Follow up as needed
[2017-10-03 00:54] VITALS: BP 133/86
== END 2017-10-03 00:54 | disposition home or self-care (01) ==
LOC: ER 20:38
DX: G44.219 Episodic tension-type headache, not intractable (principal); R11.0 Nausea; Z88.0 Allergy status to penicillin; Z90.49 Acquired absence of other specified parts of digestive tract
CPT/HCPCS: 99284; 96374; 96375; J1200; J1885; J0780

== ENCOUNTER 2018-03-07 21:28 | Emergency (ER) | payer BC ==
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
[2018-03-07 23:27] VITALS: BP 137/89
[2018-03-07] MEDS ORDERED: ACETAMINOPHEN 325 MG TABLET PO ONE (23:27)
== END 2018-03-07 23:37 | disposition home or self-care (01) ==
LOC: ER 21:28
DX: I10 Essential (primary) hypertension (principal); F43.9 Reaction to severe stress, unspecified; R51 Headache; R53.83 Other fatigue; R42 Dizziness and giddiness; J45.909 Unspecified asthma, uncomplicated; Z88.0 Allergy status to penicillin; Z91.018 Allergy to other foods
CPT/HCPCS: 99283

== ENCOUNTER 2018-03-15 11:01 | Emergency (ER) | payer BC ==
--- NOTE | 2018-03-15 11:40 | ER Document Report ---
ED Medical Screen (RME) - General Mode of Arrival: Ambulatory Information source: Patient TRAVEL OUTSIDE OF THE [place] IN LAST 30 DAYS: No - General Chief Complaint: Chest Pain Stated Complaint: CHEST PAIN Notes: Patient is a 27 year old female presenting to the emergency department complaining of pressure behind her eyes and chest pain onset this morning. Patient states she woke up with pressure behind both her eyes this morning which worsened while at work. She states she went to urgent care and began to have strong chest pain that radiated to her left arm and was subsequently sent to the emergency department. She states her blood pressure was elevated at 150/ 107 and reports starting a "water pill" 2 days ago. GENERAL: Alert, tearful. No acute distress. HEAD: Normocephalic, atraumatic. EYES: Pupils equal, round, and reactive to light. Extraocular movements intact. ENT: Oral mucosa moist, tongue midline. NECK: Full range of motion. Supple. Trachea midline. LUNGS: Clear to auscultation bilaterally, no wheezes, rales, or rhonchi. No respiratory distress. HEART: Regular rate and rhythm. No murmurs, gallops, or rubs. EXTREMITIES: Moves all 4 extremities spontaneously. No edema, radial and dorsalis pedis pulses 2/4 bilaterally. No cyanosis. NEUROLOGICAL: Alert and oriented x3. Normal speech. PSYCH: Appears anxious, tearful. SKIN: Warm, dry, normal turgor. No rashes or lesions noted. I have greeted and performed a rapid initial assessment of this patient. A comprehensive ED assessment and evaluation of the patient, analysis of test results and completion of the medical decision making process will be conducted by additional ED providers. (EVANGELISTA MYERS) - Related Data Allergies/Adverse Reactions: Penicillins Allergy (Verified 03/15/18 11:16) pineapple [Pineapple] Allergy (Verified 03/15/18 11:16) Past Medical History - General Information source: Patient - Social History Chew tobacco use (# tins/day): No Frequency of alcohol use: None Drug Abuse: None Family history: Reviewed & Not Pertinent - Past Medical History Cardiac Medical History: Reports: Hx Hypertension Pulmonary Medical History: Reports: Hx Asthma Neurological Medical History: Reports: Hx Migraine GI Medical History: Reports: Hx Gastroesophageal Reflux Disease Past Surgical History: Reports: Hx Cholecystectomy - Immunizations Hx Diphtheria, Pertussis, Tetanus Vaccination: Yes - Vital signs Vitals: Temp Pulse Resp BP Pulse Ox 98.5 F 90 18 135/100 H 97 03/15/18 11:06 03/15/18 11:06 03/15/18 11:06 03/15/18 11:06 03/15/18 11:06 - Vital Signs Vital signs: Temp Pulse Resp BP Pulse Ox 98.5 F 90 18 135/100 H 97 03/15/18 11:06 03/15/18 11:06 03/15/18 11:06 03/15/18 11:06 03/15/18 11:06
[2018-03-15] MEDS ORDERED: DIPHENHYDRAMINE HCL 50 MG/ML VIAL IV ONE (12:14)
[2018-03-15] MEDS ORDERED: METOCLOPRAMIDE HCL INJ/PF 10 MG/2 ML SDV IV ONE (12:14)
[2018-03-15 12:26] LABS: ABSOLUTE LYMPHOCYTES (AUTO) 2.5 10^3/uL (0.5-4.7); ABSOLUTE MONOCYTES (AUTO) 0.3 10^3/uL (0.1-1.4); ABSOLUTE NEUT (AUTO) 5.9 10^3/uL (1.7-8.2); BASOPHILS % (AUTO) 0.5 % (0-2); EOSINOPHILS % (AUTO) 0.5 % (0-6); HEMATOCRIT 40.5 % (36.0-47.0); HEMOGLOBIN 13.6 g/dL (12.0-15.5); LYMPHOCYTES % (AUTO) 27.9 % (13-45); MEAN CORPUSCULAR HEMOGLOBIN 26.7 pg (27.0-33.4); MEAN CORPUSCULAR HGB CONC 33.5 g/dL (32.0-36.0); MEAN CORPUSCULAR VOLUME 80 fl (80-97); PLATELET COUNT 220 10^3/uL (150-450); RED BLOOD COUNT 5.09 10^6/uL (3.72-5.28); RED CELL DISTRIBUTION WIDTH 14.5 % (11.5-14.0); SEGMENTED NEUTROPHILS % (AUTO) 67.1 % (42-78); TOTAL CELLS COUNTED % (AUTO) 100 %; WHITE BLOOD COUNT 8.8 10^3/uL (4.0-10.5)
[2018-03-15 12:48] LABS: ALANINE AMINOTRANSFERASE 52 U/L (9-52); ALBUMIN 4.6 g/dL (3.5-5.0); ALKALINE PHOSPHATASE 73 U/L (38-126); ANION GAP 15 (5-19); ASPARTATE AMINO TRANSFERASE 36 U/L (14-36); BILIRUBIN,DIRECT 0.1 mg/dL (0.0-0.4); BILIRUBIN,TOTAL 0.6 mg/dL (0.2-1.3); BLOOD UREA NITROGEN 11 mg/dL (7-20); CALCIUM 10.2 mg/dL (8.4-10.2); CARBON DIOXIDE 26 mmol/L (22-30); CHLORIDE 102 mmol/L (98-107); GLUCOSE 102 mg/dL (75-110); LIPASE 94.6 U/L (23-300); POTASSIUM 4.3 mmol/L (3.6-5.0); SODIUM 142.6 mmol/L (137-145); TOTAL PROTEIN 8.1 g/dL (6.3-8.2)
--- NOTE | 2018-03-15 12:50 | RADIOLOGY REPORT (SQ) ---
EXAM DESCRIPTION: CHEST 2 VIEWS COMPLETED DATE/TIME: 03/15/2018 12:33 pm REASON FOR STUDY: chest pain COMPARISON: 09/07/2015 EXAM PARAMETERS: NUMBER OF VIEWS: two views TECHNIQUE: Digital Frontal and Lateral radiographic views of the chest acquired. RADIATION DOSE: NA LIMITATIONS: none FINDINGS: LUNGS AND PLEURA: Low lung volumes. No opacities, masses or pneumothorax. No pleural eff usion. MEDIASTINUM AND HILAR STRUCTURES: No masses or contour abnormalities. HEART AND VASCULAR STRUCTURES: Heart normal size. No evidence for failure. BONES: No acute findings. HARDWARE: None in the chest. OTHER: No other significant finding. IMPRESSION: 1. No significant interval changes since the previous examination dated 09/07/2015. No a cute findings. TECHNICAL DOCUMENTATION: JOB ID: [id number] [employer]- All Rights Reserved Reading location - IP/workstation name: [email or web address]
--- NOTE | 2018-03-15 13:32 | ER Document Report ---
ED General - General Chief Complaint: Chest Pain Stated Complaint: CHEST PAIN Time Seen by Provider: 03/15/18 11:26 Mode of Arrival: Ambulatory Information source: Patient Notes: 27-year-old female presents the emergency department with complaints of a migraine headache and hypertension. Patient has a history of migraine headaches. She states that her headache today is similar to previous. She describes it as a pressure sensation behind her eyes that occasionally throbs. She denies any radiation of the pain. She denies any alleviating or exacerbating factors. Patient states that typically when she has a migraine headache if she is able to sleep the headache will resolve. Patient states that she is unable to sleep at this time. She denies fever, chills, vision changes, speech changes, numbness, tingling, or weakness. Patient states that she went to urgent care for the headache and began having a chest pain. She states that it was a pressure sensation in the left chest with radiation to the left arm. She states that it lasted a few minutes and then resolved on its own. She denies any difficulty breathing. Patient was just started on blood pressure medication 2 days ago. She denies a history of high cholesterol, diabetes, history of coronary artery disease, family history of coronary artery disease, smoking. TRAVEL OUTSIDE OF THE [place] IN LAST 30 DAYS: No - HPI Onset: Just prior to arrival Onset/Duration: Gradual Quality of pain: Pressure, Throbbing Severity: Moderate Associated symptoms: Nausea Exacerbated by: Denies Relieved by: Denies Similar symptoms previously: Yes Recently seen / treated by doctor: Yes - Related Data Allergies/Adverse Reactions: Penicillins Allergy (Verified 03/15/18 11:16) pineapple [Pineapple] Allergy (Verified 03/15/18 11:16) Past Medical History - General Information source: Patient - Social History Smoking Status: Never Smoker Chew tobacco use (# tins/day): No Frequency of alcohol use: None Drug Abuse: None Family History: DM, Hypertension, Thyroid Disfunction Patient has suicidal ideation: No Patient has homicidal ideation: No - Past Medical History Cardiac Medical History: Reports: Hx Hypertension Pulmonary Medical History: Reports: Hx Asthma Neurological Medical History: Reports: Hx Migraine Renal/ Medical History: Denies: Hx Peritoneal Dialysis GI Medical History: Reports: Hx Gastroesophageal Reflux Disease Past Surgical History: Reports: Hx Cholecystectomy - Immunizations Hx Diphtheria, Pertussis, Tetanus Vaccination: Yes Hx Pneumococcal Vaccination: 06/05/00 Review of Systems - Review of Systems Constitutional: No symptoms reported EENT: No symptoms reported Cardiovascular: No symptoms reported Respiratory: No symptoms reported Gastrointestinal: No symptoms reported Genitourinary: No symptoms reported Musculoskeletal: No symptoms reported Skin: No symptoms reported Hematologic/Lymphatic: No symptoms reported Neurological/Psychological: Headaches -: Yes All other systems reviewed and negative Physical Exam - Vital signs Vitals: Temp Pulse Resp BP Pulse Ox 98.5 F 90 18 135/100 H 97 03/15/18 11:06 03/15/18 11:06 03/15/18 11:06 03/15/18 11:06 03/15/18 11:06 - Notes Notes: PHYSICAL EXAMINATION: GENERAL: Well-appearing, well-nourished and in no acute distress. HEAD: Atraumatic, normocephalic. EYES: Pupils equal round and reactive to light, extraocular movements intact, conjunctiva are normal. ENT: Nares patent, oropharynx clear without exudates. Moist mucous membranes. NECK: Normal range of motion, supple without lymphadenopathy LUNGS: Breath sounds clear to auscultation bilaterally and equal. No wheezes rales or rhonchi. HEART: Regular rate and rhythm without murmurs ABDOMEN: Soft, nontender, nondistended abdomen. No guarding, no rebound. No masses appreciated. Female : deferred Musculoskeletal: Normal range of motion, no pitting or edema. No cyanosis. NEUROLOGICAL: Cranial nerves grossly intact. Normal speech, normal gait. Normal sensory, motor exams PSYCH: Normal mood, normal affect. SKIN: Warm, Dry, normal turgor, no rashes or lesions noted. Course - Re-evaluation Re-evalutation: 03/15/18 13:36 Patient's labs and imaging obtained. No acute process. Patient has continued to deny chest pain since being in the ED. She only complains of her typical migraine headache. Denies abrupt onset, fever, neuro changes. Patient given phenergan and benadryl. On re-evaluation, patient says the headache is resolving. She feeling better. I will discharge the patient home. Patient instructed to follow-up with her primary care physician this week, to continue taking medications prescribed as directed, and to return to the emergency department for worsening symptoms. Patient is agreeable with plan of care. 03/15/18 13:41 - Vital Signs Vital signs: Temp Pulse Resp BP Pulse Ox 98.5 F 90 18 135/100 H 97 03/15/18 11:06 03/15/18 11:06 03/15/18 11:06 03/15/18 11:06 03/15/18 11:06 - Laboratory Result Diagrams: 03/15/18 12:14 03/15/18 12:14 Laboratory results interpreted by me: 03/15/18 12:14 MCH 26.7 L RDW 14.5 H Discharge - Discharge Clinical Impression: Migraine headache Qualifiers: Migraine type: unspecified Status migrainosus presence: without status migrainosus Intractability: not intractable Qualified Code(s): G43.909 - Migraine, unspecified, not intractable, without status migrainosus Condition: Good Disposition: HOME, SELF-CARE Instructions: Migraine Headache ([facility]) Prescriptions: Ondansetron [Zofran Odt 4 mg Tablet] 1 tab PO Q4H PRN #15 tab.rapdis PRN Reason: For Nausea/Vomiting Referrals: BOBBY PEREZ MD [ACTIVE STAFF] - Follow up as needed
[2018-03-15 14:09] VITALS: BP 134/102
--- NOTE | 2018-03-15 22:33 | EKG REPORT ---
SEVERITY:- NORMAL ECG - SINUS RHYTHM : Confirmed by: Katie Farah MD 15-Mar-2018 22:32:35
== END 2018-03-15 14:15 | disposition home or self-care (01) ==
LOC: ER 11:01
DX: G43.909 Migraine, unspecified, not intractable, without status migrainosus (principal); R07.9 Chest pain, unspecified; Z79.899 Other long term (current) drug therapy; I10 Essential (primary) hypertension; E11.9 Type 2 diabetes mellitus without complications; I25.10 Atherosclerotic heart disease of native coronary artery without angina pectoris; J45.909 Unspecified asthma, uncomplicated
CPT/HCPCS: 93005; 99284; 96374; 96375; 36415; 83690; 84703; 85025; 80053; 84484; 71046; 93010; J1200; J2765

== ENCOUNTER 2018-09-06 20:41 | Emergency (ER) | payer BC ==
--- NOTE | 2018-09-06 21:44 | ER Document Report ---
ED Cardiac - General Chief Complaint: Irregular Pulse Stated Complaint: RAPID HEARTBEAT Time Seen by Provider: 09/06/18 21:25 Mode of Arrival: Ambulatory Information source: Patient TRAVEL OUTSIDE OF THE [place] IN LAST 30 DAYS: No - HPI Patient complains to provider of: Palpitations, Shortness of breath Is the pain a: New problem Notes: Patient here with complaints of palpitations. The patient states that about 5 hours ago she was walking up some steps and she felt like her heart was beating fast and she felt slightly short of breath. This lasted for approximately an hour. She states that she had a uncomfortable sensation in her chest when this was going on, but denies any actual pain. She denies any chest pain or shortness of breath at this time. She has a history of hypertension. She gretchen es a history of diabetes, high cholesterol, smoking, drug use. She does have a family history of heart disease. She denies any recent long trips or surgeries. She denies any leg pain or leg swelling. She is not on hormones. She denies cancer. She denies history of DVT or PE. She states that the symptoms lasted for about an hour, resolved after some rest, or mild. She does report she has had some nasal congestion and chest congestion with a mild cough for the last week or so. She also states that she has a history of hemorrhoids. This is a chronic problem, she states that she is noticed some bright red bleeding when she is wiped after having bowel movements. She states that she does not really have any concerns about this and does not really want me looking at them, she does mention that in case it had anything to do with why she was feeling the way she is feeling. She denies any history of thyroid disease. She denies any other further complaints at this time. - Related Data Allergies/Adverse Reactions: Penicillins Allergy (Verified 03/15/18 11:16) pineapple [Pineapple] Allergy (Verified 03/15/18 11:16) Past Medical History - Social History Smoking Status: Never Smoker Family History: DM, Hypertension, Thyroid Disfunction - Past Medical History Cardiac Medical History: Reports: Hx Hypertension Pulmonary Medical History: Reports: Hx Asthma Neurological Medical History: Reports: Hx Migraine Renal/ Medical History: Denies: Hx Peritoneal Dialysis GI Medical History: Reports: Hx Gastroesophageal Reflux Disease Past Surgical History: Reports: Hx Cholecystectomy - Immunizations Hx Diphtheria, Pertussis, Tetanus Vaccination: Yes Hx Pneumococcal Vaccination: 06/05/00 Review of Systems - Review of Systems -: Yes All other systems reviewed and negative Physical Exam - Vital signs Vitals: Temp Pulse Resp BP Pulse Ox 99.2 F 126 H 18 129/78 H 96 09/06/18 21:06 09/06/18 21:06 09/06/18 21:06 09/06/18 21:06 09/06/18 21:06 - Notes Notes: GENERAL: alert, cooperative, nontoxic, no distress. HEAD: normocephalic, atraumatic EYES: conjunctiva pink without discharge, no external redness or swelling. EARS: no external swelling, no external redness NOSE: atraumatic, no external swelling MOUTH/THROAT: mucous membranes moist and pink, posterior pharynx without erythema, swelling, exudate. No trismus or drooling. NECK: soft, supple, full range of motion, no meningismus. CHEST: no distress, lungs clear and equal throughout. No wheezing, rales, rhonchi. CARDIAC: Tachycardia, regular rhythm, no murmur, normal capillary refill, normal pulses. No peripheral edema noted. ABDOMEN: Soft, nontender. BACK: full range of motion, no CVA tenderness. EXTREMITIES: full range of motion of all extremities. No redness, no swelling. NEURO: alert and oriented x 3, no focal deficits, full range of motion of all extremities. PYSCH: appropriate mood, affect. Patient is cooperative. SKIN: pink, warm, dry, no rash. RECTAL: Patient declined, she states that she would prefer I not look at her rectum. Course - Re-evaluation Re-evalutation: 09/06/18 22:41 Heart score is 2. This makes her low risk for MACE. Risk of 0.9-1.7%. 09/06/18 23:44 Patient resting comfortably at this time. I have gone over her lab results, x- ray results, EKG results with her at this time. Still slightly above 100. IV fluids have been ordered, and are currently infusing. We will reassess her heart rate after her IV fluids. She is now complaining of a mild headache. I have ordered some ibuprofen for her headache. We will continue to monitor and will reevaluate. 09/07/18 00:50 Patient resting comfortably at this time. States that she is feeling well enough to go home at this time. This point the patient came in with complaints of some palpitations feeling short of breath after going up some stairs. Patient is noted to be mildly obese. EKG shows a sinus tachycardia with no other specific abnormalities. Troponin is negative. Heart score is 2. She has no PE risk factors, but she had a Q3, S1 pattern on EKG with some mild tachycardia and shortness of breath, therefore a d-dimer was ordered. D-dimer was negative. Potassium was mildly low and was repleted. Patient is otherwise resting comfortably at this time. At this point I believe the patient can be discharged home with a referral to cardiology for her palpitations. Follow-up with cardiology at the next available appointment. Follow-up sooner for worsening symptoms, significant chest pain, difficulty breathing, syncope, persistent vomiting, or for any further concerns. - Vital Signs Vital signs: Temp Pulse Resp BP Pulse Ox 99.2 F 126 H 18 129/78 H 96 09/06/18 21:06 09/06/18 21:06 09/06/18 23:38 09/06/18 21:06 09/07/18 00:00 - Laboratory Result Diagrams: 09/06/18 21:45 09/06/18 21:45 Laboratory results interpreted by me: 09/06/18 09/06/18 09/06/18 21:45 21:45 22:07 WBC 12.7 H Hct 35.6 L MCV 79 L RDW 14.7 H Absolute Neutrophils 9.2 H Potassium 3.2 L Urine Blood SMALL H Ur Leukocyte Esterase MODERATE H - Diagnostic Test Radiology reviewed: Image reviewed, Reports reviewed - Negative - EKG Interpretation by Me EKG shows normal: Sinus rhythm, [place], Intervals, ST-T Waves Rate: Tachycardia When compared to previous EKG there are: Other - Q3, S1, T3 pattern. No STEMI. Discharge - Discharge Clinical Impression: Heart palpitations, Dyspnea Condition: Stable Disposition: HOME, SELF-CARE Instructions: Palpitations (Irregular or Rapid Heartrate) ([facility]), Dyspnea, Nonspecific ([facility]) Additional Instructions: Follow-up with cardiology at the next available appointment. Follow-up with your primary care doctor at the next available appointment. Follow-up sooner or return the emergency department for worsening symptoms, significant chest pain, significant trouble breathing, persistent vomiting, passing out, or for any further concerns. Forms: Elevated Blood Pressure, Smoking Cessation Education Referrals: PATRICIA HENDRIX PA-C [Primary Care Provider] - Follow up as needed LEEANN BRADFORD MD [ACTIVE STAFF] - Follow up as needed
[2018-09-06 21:57] LABS: ABSOLUTE LYMPHOCYTES (AUTO) 2.9 10^3/uL (0.5-4.7); ABSOLUTE MONOCYTES (AUTO) 0.5 10^3/uL (0.1-1.4); ABSOLUTE NEUT (AUTO) 9.2 10^3/uL (1.7-8.2); BASOPHILS % (AUTO) 0.3 % (0-2); EOSINOPHILS % (AUTO) 0.3 % (0-6); HEMATOCRIT 35.6 % (36.0-47.0); HEMOGLOBIN 12.2 g/dL (12.0-15.5); LYMPHOCYTES % (AUTO) 23.3 % (13-45); MEAN CORPUSCULAR HGB CONC 34.3 g/dL (32.0-36.0); MEAN CORPUSCULAR VOLUME 79 fl (80-97); PLATELET COUNT 185 10^3/uL (150-450); RED BLOOD COUNT 4.52 10^6/uL (3.72-5.28); RED CELL DISTRIBUTION WIDTH 14.7 % (11.5-14.0); SEGMENTED NEUTROPHILS % (AUTO) 72.1 % (42-78); TOTAL CELLS COUNTED % (AUTO) 100 %; WHITE BLOOD COUNT 12.7 10^3/uL (4.0-10.5)
[2018-09-06 22:12] LABS: ALANINE AMINOTRANSFERASE 34 U/L (9-52); ALBUMIN 4.2 g/dL (3.5-5.0); ALKALINE PHOSPHATASE 70 U/L (38-126); ANION GAP 11 (5-19); ASPARTATE AMINO TRANSFERASE 28 U/L (14-36); BILIRUBIN,DIRECT 0.3 mg/dL (0.0-0.4); BILIRUBIN,TOTAL 0.6 mg/dL (0.2-1.3); BLOOD UREA NITROGEN 13 mg/dL (7-20); CALCIUM 9.8 mg/dL (8.4-10.2); CARBON DIOXIDE 28 mmol/L (22-30); CHLORIDE 99 mmol/L (98-107); GLUCOSE 103 mg/dL (75-110); POTASSIUM 3.2 mmol/L (3.6-5.0); SODIUM 138.1 mmol/L (137-145); TOTAL PROTEIN 7.2 g/dL (6.3-8.2)
[2018-09-06] MEDS ORDERED: POTASSIUM CHLORIDE 10 MEQ CAPSULE.ER PO ONE (22:21)
--- NOTE | 2018-09-06 22:23 | RADIOLOGY REPORT (SQ) ---
EXAM DESCRIPTION: XR CHEST 2 VIEWS COMPLETED DATE/TME: 09/06/2018 21:39 CLINICAL HISTORY: 27 years, Female, palpitations COMPARISON: X-ray chest 09/07/2015 NUMBER OF VIEWS: TECHNIQUE: LIMITATIONS: None. FINDINGS: No evidence of pulmonary infiltrate or pleural effusion. The heart and mediastinum are unremarkable. Pulmonary vascularity appears normal. There is no significant change, as compared with the prior x-rays. IMPRESSION: No acute finding. copyright 2010 [employer]- All Rights Reserved
[2018-09-06] MEDS ORDERED: NORMAL SALINE 1000 ML 1,000 ML IV ONE (22:38)
[2018-09-06 22:43] LABS: APPEARANCE,URINE CLOUDY; BILIRUBIN,URINE NEGATIVE (NEGATIVE); COLOR,URINE YELLOW; GLUCOSE, URINE NEGATIVE (NEGATIVE); KETONES,URINE NEGATIVE (NEGATIVE); LEUKOCYTE ESTERASE,URINE MODERATE (NEGATIVE); NITRITE,URINE NEGATIVE (NEGATIVE); PROTEIN,URINE NEGATIVE (NEGATIVE); URINE SPECIFIC GRAVITY 1.014; UROBILINOGEN,URINE NEGATIVE mg/dL (<2.0)
[2018-09-06] MEDS ORDERED: IBUPROFEN 600 MG TABLET PO ONE (23:44)
[2018-09-07 01:22] VITALS: BP 134/80
--- NOTE | 2018-09-07 07:47 | EKG REPORT ---
SEVERITY:- OTHERWISE NORMAL ECG - SINUS TACHYCARDIA : Confirmed by: Braulio Julian MD 07-Sep-2018 07:47:03
== END 2018-09-07 01:27 | disposition home or self-care (01) ==
LOC: ER 20:41
DX: R00.2 Palpitations (principal); R06.00 Dyspnea, unspecified; R19.5 Other fecal abnormalities; I10 Essential (primary) hypertension; J45.909 Unspecified asthma, uncomplicated
CPT/HCPCS: 93005; 99285; 96360; 36415; 83735; 84443; 85025; 81025; 80053; 81001; 84484; 85379; 71046; 93010; J7030

== ENCOUNTER 2020-04-27 19:11 | Emergency (ER) | payer BC, OTHER ==
--- NOTE | 2020-04-27 22:30 | ER Document Report ---
ED Medical Screen (RME) - General Chief Complaint: Back Pain Stated Complaint: ABDOMINAL PAIN Time Seen by Provider: 04/27/20 22:23 Primary Care Provider: PATRICIA HENDRIX PA-C [Primary Care Provider] - Follow up as needed Mode of Arrival: Ambulatory Information source: Patient Notes: HPI; 39-year-old female past medical history significant for migraines and kidney stones presents emergency room with right flank pain that started last night. Patient states she started a migraine on Monday vomited 3 times yesterday she woke up with sudden sharp stabbing right flank pain. Chills and a subjective fever. States today the pain has gotten worse. Took some naproxen last night with minimal relief. Started with dysuria today. No . PE: Alert and oriented x3. Lungs: Clear to auscultation without rales, rhonchi, wheezes. Heart tachycardic without murmurs, rubs or gallops. Right CVA tenderness. I have greeted and performed a rapid initial assessment of this patient. A comprehensive ED assessment and evaluation of the patient, analysis of test results and completion of the medical decision making process will be conducted by additional ED providers. I have specifically instructed the patient or family members with the patient to immediately return to any nursing staff should anything change in the patient's condition or with their chief complaint. TRAVEL OUTSIDE OF THE [place] IN LAST 30 DAYS: No - Related Data Allergies/Adverse Reactions: Penicillins Allergy (Verified 04/27/20 22:21) pineapple [Pineapple] Allergy (Verified 04/27/20 22:21) Home Medications: amlodipine, Hydrochlorothizide Past Medical History - Social History Family history: Reviewed & Not Pertinent - Past Medical History Cardiac Medical History: Reports: Hx Hypertension Pulmonary Medical History: Reports: Hx Asthma Neurological Medical History: Reports: Hx Migraine Renal/ Medical History: Denies: Hx Peritoneal Dialysis GI Medical History: Reports: Hx Gastroesophageal Reflux Disease Past Surgical History: Reports: Hx Cholecystectomy - Immunizations Hx Diphtheria, Pertussis, Tetanus Vaccination: Yes Physical Exam - Vital signs Vitals: Temp Pulse Resp BP Pulse Ox 98.1 F 102 H 16 125/98 H 98 04/27/20 19:40 04/27/20 19:40 04/27/20 19:40 04/27/20 19:40 04/27/20 19:40 Course - Vital Signs Vital signs: Temp Pulse Resp BP Pulse Ox 98.1 F 102 H 16 125/98 H 98 04/27/20 19:40 04/27/20 19:40 04/27/20 19:40 04/27/20 19:40 04/27/20 19:40 Doctor's Discharge - Discharge Referrals: PATRICIA HENDRIX, KT [Primary Care Provider] - Follow up as needed
[2020-04-27 23:51] LABS: ABSOLUTE LYMPHOCYTES (AUTO) 2.6 10^3/uL (0.5-4.7); ABSOLUTE MONOCYTES (AUTO) 0.5 10^3/uL (0.1-1.4); ABSOLUTE NEUT (AUTO) 3.2 10^3/uL (1.7-8.2); BASOPHILS % (AUTO) 0.7 % (0-2); EOSINOPHILS % (AUTO) 0.3 % (0-6); HEMOGLOBIN 14.4 g/dL (12.0-15.5); LYMPHOCYTES % (AUTO) 40.4 % (13-45); MEAN CORPUSCULAR HGB CONC 34.2 g/dL (32.0-36.0); MEAN CORPUSCULAR VOLUME 79 fl (80-97); MONOCYTES % (AUTO) 8.5 % (3-13); PLATELET COUNT 243 10^3/uL (150-450); RED BLOOD COUNT 5.32 10^6/uL (3.72-5.28); RED CELL DISTRIBUTION WIDTH 14.7 % (11.5-14.0); SEGMENTED NEUTROPHILS % (AUTO) 50.1 % (42-78); TOTAL CELLS COUNTED % (AUTO) 100 %; WHITE BLOOD COUNT 6.4 10^3/uL (4.0-10.5)
[2020-04-28 00:10] LABS: ALBUMIN 4.9 g/dL (3.5-5.0); ALKALINE PHOSPHATASE 77 U/L (38-126); ANION GAP 14 (5-19); ASPARTATE AMINO TRANSFERASE 70 U/L (14-36); BILIRUBIN,DIRECT 0.1 mg/dL (0.0-0.4); BILIRUBIN,TOTAL 0.7 mg/dL (0.2-1.3); BLOOD UREA NITROGEN 12 mg/dL (7-20); CALCIUM 9.9 mg/dL (8.4-10.2); CARBON DIOXIDE 28 mmol/L (22-30); CHLORIDE 97 mmol/L (98-107); GLUCOSE 100 mg/dL (75-110); POTASSIUM 3.4 mmol/L (3.6-5.0); TOTAL PROTEIN 8.5 g/dL (6.3-8.2)
[2020-04-28 00:38] LABS: APPEARANCE,URINE TURBID; BILIRUBIN,URINE NEGATIVE (NEGATIVE); COLOR,URINE YELLOW; GLUCOSE, URINE NEGATIVE (NEGATIVE); KETONES,URINE NEGATIVE (NEGATIVE); LEUKOCYTE ESTERASE,URINE NEGATIVE (NEGATIVE); NITRITE,URINE NEGATIVE (NEGATIVE); PROTEIN,URINE 100 mg/dL (NEGATIVE); UROBILINOGEN,URINE NEGATIVE mg/dL (<2.0)
--- NOTE | 2020-04-28 00:43 | ER Document Report ---
ED Neck/Back Problem - General Chief Complaint: Back Pain Stated Complaint: ABDOMINAL PAIN Time Seen by Provider: 04/27/20 22:23 Primary Care Provider: PATRICIA HENDRIX PA-C [Primary Care Provider] - Follow up as needed Mode of Arrival: Ambulatory Notes: CHIEF COMPLAINT: Low back pain and vomiting and chills HPI: 29-year-old female presenting with multiple complaints. Patient states that she developed a migraine 4 days ago, 3 days ago had episodes of vomiting. 2 days ago developed some chills and pain in the low back. No abdominal pain. No definite fevers. ROS: See HPI - all other systems were reviewed and are otherwise negative Constitutional: no fever Eyes: no drainage, no blurred vision ENT: no runny nose, no sore throat Cardiovascular: no chest pain Resp: no SOB, no cough GI: no vomiting, no diarrhea, no abdominal pain : no dysuria Integumentary: no rash Allergy: no hives Musculoskeletal: no extremity pain or swelling, positive low back pain Neurological: no numbness/tingling, no weakness MEDICATIONS: I agree with the patient medications as charted by the RN. ALLERGIES: I agree with the allergies as charted by the RN. PAST MEDICAL HISTORY/PAST SURGICAL HISTORY: Reviewed and agree as charted by RN. SOCIAL HISTORY: Reviewed and agree as charted by RN. FAMILY HISTORY: No significant familial comorbid conditions directly related to patient complaint EXAM: Reviewed vital signs as charted by RN. CONSTITUTIONAL: Alert and oriented and responds appropriately to questions. Well-appearing; well-nourished HEAD: Normocephalic; atraumatic EYES: Conjunctivae clear, sclerae non-icteric ENT: normal nose; no rhinorrhea; moist mucous membranes NECK: Supple without meningismus CARD: RRR; no murmurs, no clicks, no rubs, no gallops; symmetric distal pulses RESP: Normal chest excursion without splinting or tachypnea; breath sounds clear and equal bilaterally; no wheezes, no rhonchi, no rales, pulse oximetry ABD/GI: Normal bowel sounds; non-distended; soft, non-tender, no rebound, no guarding; no palpable organomegaly or masses. BACK: The back appears normal and is mildly tender to palpation across the lower lumbar back bilaterally, there is no CVA tenderness EXT: Normal ROM in all joints; non-tender to palpation; no cyanosis, no effusions, no edema SKIN: Normal color for age and race; warm; dry; good turgor; no acute lesions noted NEURO: Moves all extremities equally; Motor and sensory function intact PSYCH: The patient's mood and manner are appropriate. Grooming and personal hygiene are appropriate. MDM: 29-year-old obese female with low back pain over the last 24 hours, had some chills prior to that. Patient had vomiting 3 days ago which she attributed to a migraine headache. She does appear to have a UTI today. We will treat with antibiotics, follow-up PCP TRAVEL OUTSIDE OF THE [place] IN LAST 30 DAYS: No - Related Data Allergies/Adverse Reactions: Penicillins Allergy (Verified 04/27/20 22:21) pineapple [Pineapple] Allergy (Verified 04/27/20 22:21) Home Medications: amlodipine, Hydrochlorothizide Past Medical History - General Information source: Patient - Social History Smoking Status: Never Smoker Family History: DM, Hypertension, Thyroid Disfunction Patient has homicidal ideation: No - Past Medical History Cardiac Medical History: Reports: Hx Hypertension Pulmonary Medical History: Reports: Hx Asthma Neurological Medical History: Reports: Hx Migraine Renal/ Medical History: Denies: Hx Peritoneal Dialysis GI Medical History: Reports: Hx Gastroesophageal Reflux Disease Past Surgical History: Reports: Hx Cholecystectomy - Immunizations Hx Diphtheria, Pertussis, Tetanus Vaccination: Yes Hx Pneumococcal Vaccination: 06/05/00 Physical Exam - Vital signs Vitals: Temp Pulse Resp BP Pulse Ox 98.1 F 102 H 16 125/98 H 98 04/27/20 19:40 04/27/20 19:40 04/27/20 19:40 04/27/20 19:40 04/27/20 19:40 Course - Vital Signs Vital signs: Temp Pulse Resp BP Pulse Ox 98.1 F 103 H 16 114/73 99 04/27/20 19:40 04/27/20 23:45 04/27/20 19:40 04/27/20 23:45 04/27/20 23:45 - Laboratory Result Diagrams: 04/27/20 23:45 04/27/20 23:45 Laboratory results interpreted by me: 04/27/20 04/27/20 04/27/20 19:36 23:45 23:45 RBC 5.32 H MCV 79 L RDW 14.7 H Potassium 3.4 L Chloride 97 L AST 70 H ALT 67 H Total Protein 8.5 H Urine Protein 100 H Discharge - Discharge Clinical Impression: Low back pain Qualifiers: Chronicity: acute Back pain laterality: bilateral Sciatica presence: without sciatica Qualified Code(s): M54.5 - Low back pain UTI (urinary tract infection) Qualifiers: Urinary tract infection type: acute cystitis Hematuria presence: without hematuria Qualified Code(s): N30.00 - Acute cystitis without hematuria Condition: Stable Disposition: HOME, SELF-CARE Instructions: Urinary Tract Infection ([facility]), Trimethoprim-Sulfa ([facility]) Additional Instructions: 1. Bactrim and Pyridium as prescribed 2. follow up with your PCP for further evaluation and treatment including making sure that the urine infection is clearing 3. return to the ED for any fever, back pain or worsening condition 4. hydrate well at home to flush the system. Prescriptions: Sulfamethoxazole/Trimethoprim [Bactrim Ds Tablet] 1 each PO BID #14 tablet Phenazopyridine HCl [Pyridium 200 mg Tablet] 200 mg PO TID #15 tablet Referrals: PATRICIA HENDRIX PA-C [Primary Care Provider] - Follow up as needed
[2020-04-28] MEDS ORDERED: SULFAMETHOXAZOLE/TRIMETHOPRIM 800-160 MG TABLET PO ONE (00:53)
[2020-04-28 01:10] VITALS: BP 142/85
== END 2020-04-28 01:08 | disposition home or self-care (01) ==
LOC: ER 19:11
DX: N30.00 Acute cystitis without hematuria (principal); M54.5 Low back pain; J45.909 Unspecified asthma, uncomplicated; I10 Essential (primary) hypertension; Z79.899 Other long term (current) drug therapy; Z88.0 Allergy status to penicillin; Z91.018 Allergy to other foods
CPT/HCPCS: 36415; 80053; 81001; 84703; 85025; 99283